=== PATIENT | male | born 1995 | race Caucasian/White ===

== ENCOUNTER 2017-08-17 13:21 | Outpatient (CLI) | payer OTHER, SELFPAY ==
[2017-08-17 15:19] LABS: Anion Gap 12 mmol/L (10-20); BUN (Urea Nitrogen) 14 mg/dL (8.9-20.6); Bilirubin Negative (Negative); Blood, Urine Negative (Negative); Calc. Creatinine Clearance 0 mL/min (70-130); Calcium 9.8 mg/dL (7.8-10.44); Carbon Dioxide 31 mmol/L (22-29); Chloride 101 mmol/L (98-107); Clarity TURBID (Clear); Estimated GFR-MDRD Greater than 90; Glucose 95 mg/dL (70-105); Glucose, Urine (Dipstick) Negative (Negative); Leukocyte Negative (Negative); Nitrite Negative (Negative); Potassium 4.6 mmol/L (3.5-5.1); Protein, Urine (Dipstick) Negative (Neg-Trace); Sodium 139 mmol/L (136-145); Specific Gravity, Urine 1.018 (1.002-1.036); Uric Acid 4.6 mg/dL (3.5-7.2); Urobilinogen 0.2 mg/dL (0.2-1.0)
--- NOTE | 2017-08-17 16:10 | RAD ---
KUB: 08/17/17 COMPARISON: 02/17/17 HISTORY: Calculus at the ureter. FINDINGS: The double-J ureteral stent present on the left on the prior examination has been removed. The bowel gas pattern appears nonobstructed. No calcifications are seen in the upper abdomen. No stone seen nohemi ng the expected course of either ureter. IMPRESSION: Unremarkable KUB. POS: [facility]
== END 2017-08-17 13:22 | disposition home or self-care (01) ==
LOC: ULT 13:21
PROVIDERS: ATTEND Urology
DX: N20.1 Calculus of ureter (principal)
CPT/HCPCS: 74018; 80048; 81003; 83970; 84550; 87086

== ENCOUNTER 2019-01-16 11:19 | Day surgery (SDC) | payer BC, OTHER ==
[2019-01-16 12:10] LABS: #Eosinphils 0.2 thou/uL (0.0-0.7); #Lymphocytes 0.9 thou/uL (1.20-3.40); #Monocytes 0.8 thou/uL (0.11-0.59); #Neutrophils 13.1 thou/uL (1.40-6.50); %Basophils 0.2 % (0.0-1.0); %Eosinophils 1.2 % (0.0-10.0); %Lymphocytes 6.2 % (21.0-51.0); %Neutrophils 87.4 % (42.0-75.0); Hemoglobin 14.3 g/dL (14.0-18.0); Mean Corpuscular HGB CONC 34.3 g/dL (32.0-36.0); Mean Corpuscular Hemoglobin 30.2 pg (27.0-31.0); Mean Corpuscular Volume 88.1 fL (78.0-98.0); Mean Platelet Volume 7.1 fL (7.4-10.4); Platelet Count 225 thou/uL (130-400); RBC Distribution Width 11.4 % (11.5-14.5); Red Blood Cell (RBC) Count 4.75 mill/uL (4.70-6.10); White Blood Cell (WBC) Count 14.9 thou/uL (4.8-10.8)
[2019-01-16 12:17] LABS: Bilirubin Negative (Negative); Blood, Urine Negative (Negative); Clarity Clear (Clear); Glucose, Urine (Dipstick) Normal (Negative); Leukocyte Negative Leu/uL (Negative); Nitrite Negative (Negative); Protein, Urine (Dipstick) Negative (Neg-Trace); Urobilinogen Normal mg/dL (Less than 2)
[2019-01-16 12:33] LABS: ALT (SGPT) 13 U/L (8-55); AST (SGOT) 17 U/L (5-34); Albumin 4.6 g/dL (3.5-5.0); Alkaline Phosphatase 57 U/L (40-150); Anion Gap 11 mmol/L (10-20); BUN (Urea Nitrogen) 12 mg/dL (8.9-20.6); Bilirubin, Total 0.8 mg/dL (0.2-1.2); Calc. Creatinine Clearance 0 mL/min (70-130); Calcium 9.2 mg/dL (7.8-10.44); Carbon Dioxide 27 mmol/L (22-29); Chloride 102 mmol/L (98-107); Estimated GFR-MDRD Greater than 90; Globulin 2.6 g/dL (2.4-3.5); Glucose 90 mg/dL (70-105); Lipase 18 U/L (8-78); Potassium 3.9 mmol/L (3.5-5.1); Protein, Total 7.2 g/dL (6.0-8.3); Sodium 136 mmol/L (136-145)
[2019-01-16] MEDS ORDERED: Ondansetron PF 4 MG/2 ML Vial ONE (12:41)
[2019-01-16] MEDS ORDERED: Ketorolac Tromethamine 30 MG/ML VIAL ONE ×2 (12:41→16:29)
--- NOTE | 2019-01-16 13:12 | CT ---
CT Stone Protocol 01/16/2019 12:38 PM HISTORY: Right lower quadrant abdominal pain with nausea. History of kidney stones with prior removal 2 years ago. COMPARISON: 02/12/2017 Technique: Multiple contiguous axial CT images are obtained through the abdomen and pelvis without IV contrast. Coronal reformats are provided. FINDINGS: This examination is limited for the evaluation of solid organs and vascular structures due to the lac k of intravenous contrast. Lower Chest: Lung bases are clear. Abdomen: Liver: Grossly normal nonenhanced CT appearance. Gallbladder: Within normal limits for CT imaging. Pancreas: Grossly normal nonenhanced CT appearance. Spleen: Grossly normal nonenhanced CT appearance. Adrenals: Grossly normal nonenhanced CT appearance. Kidneys: No renal calculi are visualized, and there is no evidence of hydronephrosis. Left hydronephr osis noted on prior exam is no longer present. Ureters: No ureteral calculus is seen.. The previously noted left ureteral calculus is no longer visu alized likely related to interval treatment. Pelvis: Urinary bladder: Partially distended and grossly normal in appearance. Reproductive Organs: No pelvic masses. Lymph Nodes: Few mildly prominent lymph nodes are seen in the right lower quadrant which do appear mi ldly increased in number and may be reactive in origin. Bowel: Normal caliber. Appendix: The appendix is dilated measuring 9 mm, and there is minimal adjacent periappendiceal infla mmatory stranding. Peritoneum: No free fluid, free air, or fluid collection. Retroperitoneum: within normal limits. Vessels: Abdominal aorta is normal in caliber.. Abdominal Wall: within normal limits. Bones: within normal limits. IMPRESSION: 1. Evidence of acute appendicitis. 2. No renal or ureteral calculi are seen bilaterally, and there is no hydronephrosis. 3. Above findings discussed with Dr. Ponce in the emergency department 01/16/2019 at 1308 hours.
[2019-01-16] MEDS ORDERED: MEROPENEM 1 GM/50 ML 1 GM in Premix Bag 1 BAG IVPB SCH (13:45)
--- NOTE | 2019-01-16 14:49 | HP ---
HISTORY OF PRESENT ILLNESS: Lucas Leung is a 23-year-old male from [place], [place], lives alone in an , [facility], industrial distribution, presents with 16-hour history of right lower quadrant pain, anorexia, nausea, seen in the emergency room. CAT scan confirmed an appendicitis. White count 14 and hemoglobin 14. Basic metabolic profile normal. ALLERGIES: NONE. TOBACCO: None. ALCOHOL: Socially. MEDICATIONS: None. PAST SURGICAL AND MEDICAL HISTORY: Noncontributory, except for urolithiasis. REVIEW OF SYSTEMS: Ten-point noncontributory. PHYSICAL EXAMINATION: VITAL SIGNS: Respiratory rate 16, heart rate 68, and blood pressure 120/60. HEAD, EARS, EYES, NOSE AND THROAT: Unremarkable. Sclerae nonicteric. SKIN: Nonjaundiced. LYMPH: No lymphadenopathy at neck, axilla or groins. NEUROLOGICAL: Intact. No focal deficit. LUNGS: Clear to auscultation. CARDIAC: Regular rate and rhythm without murmur or gallop. ABDOMEN: Soft. Tenderness in right lower quadrant. No guarding or rebound. EXTREMITIES: Unremarkable. ASSESSMENT AND PLAN: Acute appendicitis. I would recommend laparoscopic video appendectomy. Risks of infection, bleeding, reoperation discussed. He consents. Job ID: [id number]
[2019-01-16] MEDS ORDERED: Meropenem 2 GM, Admixture Fee 1 EACH in Sodium Chloride 0.9% 100 ML IVPB SCH (16:00)
[2019-01-16] MEDS ORDERED: Bupivacaine HCl 0.5%/Epinephrine 1:200,000/PF 30 ml Vial ONE (17:08)
[2019-01-16] MEDS ORDERED: Fentanyl 100 MCG/2 ML VIAL ONE (17:12)
[2019-01-16] MEDS ORDERED: SUGAMMADEX SODIUM 200 MG/2 ML VIAL ONE (18:01)
[2019-01-16] MEDS ORDERED: Meperidine HCl/PF 25 MG/ML VIAL ONE (18:15)
--- NOTE | 2019-01-17 00:42 | OP ---
DATE OF PROCEDURE: 01/16/2019 PREOPERATIVE DIAGNOSIS: Acute appendicitis. POSTOPERATIVE DIAGNOSIS: Acute appendicitis. PROCEDURE PERFORMED: Laparoscopic video appendectomy. ANESTHESIA: General, local 0.5% Marcaine with epinephrine 30 mL. DESCRIPTION OF PROCEDURE: The patient was taken to the operating room, where under general anesthesia, abdomen was prepared with ChloraPrep and draped in routine fashion. Ochoa catheter was placed at the beginning of procedure, removed at the end. Local anesthetic was infiltrated in the skin and subcutaneous tissue at each port site. Infraumbilical incision was made. Pneumoperitoneum to 15 mmHg was obtained with a Veress needle, replaced with a 5 port, where the laparoscope was inserted. Right lateral subcostal incision was made and a 5 port was placed. Suprapubic incision was made and a 12 port placed. Mesoappendix was taken down with the LigaSure. Appendix was divided with Endo blue load stapler. Stapled cecal stump. Hemostasis was gained with clips. Good hemostasis noted. Appendix removed and submitted to Pathology. Irrigant and pneumoperitoneum evacuated. All instruments were removed and suprapubic fascia was approximated with 0 Vicryl. Skin incision approximated with interrupted subdermal 4-0 Monocryl and [place] glue applied. The patient tolerated the procedure well. Job ID: [id number]
== END 2019-01-16 19:39 | disposition home or self-care (01) ==
LOC: ERS 11:19 → SDC 13:52
PROVIDERS: ATTEND Specialist
PROC: 0DTJ4ZZ Resection of Appendix, Percutaneous Endoscopic Approach (ICD-10-PCS; principal; 2019-01-16)
DX: K35.80 Unspecified acute appendicitis (principal); J45.909 Unspecified asthma, uncomplicated
CPT/HCPCS: 36415; 74176; 80053; 81003; 83690; 85025; 88304; 96361; 96374; 96375; J0131; J0670; J1885; J2175; J2185; J2405; J3010; J3490